=== PATIENT | male | born 1985 | race Caucasian/White ===

== ENCOUNTER → 2024-08-31 | Outpatient (CLI) | payer OTHER ==
[2024-08-31 11:16] VITALS: BP 123/78; PULSE 67; RESP 12; TEMP 98.3
--- NOTE | 2024-08-31 11:37 | P.SLEEP ---
History of Present Illness DATE: 08/31/2024 CONSULTATION/NEW PATIENT EVALUATION HISTORY OF PRESENT ILLNESS/SLEEP-WAKE EVALUATION: 39-year-old gentleman had b een evaluated in the sleep center for possible obstructive sleep apnea hypopnea syndrome. SLEEP SCHEDULE: Usually sleep schedule from 1011 PM until 5:30 AM on weekdays and from 1112 until 67 AM on weekend. FALLING ASLEEP: Usually no problems with falling asleep. DURING SLEEP: Patient has loud snoring and witnessed episodes of stop breathing during the sleep according to his . Patient wakes up from sleep 2 times. Positive history of dry mouth, heartburn, sweating. No history of hypnogogical hallucinations, sleep paralysis, or cataplexy. DURING THE DAY/WAKE STATE: In the morning patient wake up tired, has episodes of irritability. [place] sleepiness scale is 5. Usually patient does not take naps. PAST MEDICAL HISTORY: Hypertension, hyperlipidemia. PAST SURGICAL HISTORY: Status post left elbow surgery and vasectomy. MEDICATIONS: Please see below. SOCIAL HISTORY: Please see below. FAMILY HISTORY: Please see below. REVIEW OF SYSTEMS: Loud snoring, multiple awakenings from sleep. No fevers. No double vision. No recent chest pain. No shortness of breath. No abdominal pain. No bleeding episodes. No blood in urine. No seizure episodes. PHYSICAL EXAMINATION: GENERAL: A pleasant patient without any distress. VITAL SIGNS: See below, weight 225 pounds, BMI 32.3. HEENT: PERRLA, EOMI. Evaluation of oropharynx showed tongue protrudes midline, low position of soft palate Mallampati 3. NECK: Supple. No JVD. Thyroid is not palpable. 17 inches in circumference. LUNGS: Clear to percussion and to auscultation. Good air exchange. No wheezing or rhonchi. HEART: S1, S2 regular. No murmurs, gallops or rubs. ABDOMEN: Soft and nontender. Bowel sounds are present. No organomegaly appreciated. EXTREMITIES: No clubbing or cyanosis. BUSINESS EDUCATION PROFESSOR: Awake, alert, and oriented x3. Cranial nerves 2 to 7 intact. There is no fasciculation or atrophy noted. No focal deficits observed. ASSESSMENT: 1. Loud snoring, awakenings from sleep, low position of soft palate Mallampati 3, wide neck 17 inches in circumference, witnessed episodes of stop breathing during sleep. Obstructive sleep apnea hypopnea syndrome. 2. Hypertension. 3. Hyperlipidemia. 4. Status post vasectomy. 5 status post left elbow surgery. 6 . Obesity. PLAN: 1. Polysomnography for evaluation of patient's breathing during sleep. 2. Following plan after reading sleep study. 3. Preferable position during sleep on the side. 4. No driving if patient feels any sleepiness. Patient is aware of civil and criminal liability for unsafe driving. 5. Sleep hygiene with regular sleep time for at least 7.5-8 hours. 6. Watching weight. Thank you very much for referring this patient for consultation. Sincerely, Paulo Cortés MD, PhD, FAASM. Diplomat of [place] [employer], Sleep Medicine Board by [place] [employer] [place] [employer] End Worker of [facility] [place] cc: Stephen Ortiz MD Past Medical History Past Medical History: Hyperlipidemia, Hypertension History of Any Multi-Drug Resistant Organisms: None Reported Past Surgical History: Orthopedic Surgery Additional Past Surgical History / Comment(s): left elbow, vasactomy Past Anesthesia/Blood Transfusion Reactions: No Reported Reaction Past Psychological History: No Psychological Hx Reported Smoking Status: Current every day smoker Past Alcohol Use History: Rare Past Drug Use History: None Reported Medications and Allergies Home Medications Medication Instructions Recorded Confirmed Type Atorvastatin [Lipitor] 20 mg PO DAILY 08/31/24 08/31/24 History Famotidine [Pepcid] 20 mg PO DAILY 08/31/24 08/31/24 History Ibuprofen [Motrin] 600 mg PO Q8HR PRN 08/31/24 08/31/24 History lisinopriL [Zestril] 10 mg PO DAILY 08/31/24 08/31/24 History Physical Exam Vitals: Vital Signs Temp Pulse Resp BP Pulse Ox 08/31/24 11:12 98.3 F 67 12 123/78 96 Intake and Output 08/30/24 08/31/24 08/31/24 22:59 06:59 14:59 Other: Weight 102.058 kg Sleep Note - Sleep Data ESS Total: 5 - Sleep Note Sleep Note: Temperature: 98.3 F Pulse Rate: 67 Respiratory Rate: 12 Blood Pressure: 123/78 SpO2: 96 Height: 5 ft 10 in Weight: 102.058 kg BMI: Neck Circumference: 17
== END ==
LOC: 3 N SLEEP 10:56
PROVIDERS: ATTEND Internal Medicine
DX: G47.33 Obstructive sleep apnea (adult) (pediatric) (principal); I10 Essential (primary) hypertension; E78.5 Hyperlipidemia, unspecified; E66.9 Obesity, unspecified; Z98.890 Other specified postprocedural states; Z98.52 Vasectomy status; Z68.32 Body mass index [BMI] 32.0-32.9, adult
CPT/HCPCS: 99202

== ENCOUNTER → 2024-10-09 | Outpatient (CLI) | payer OTHER ==
--- NOTE | 2024-10-14 14:39 | P.PCN ---
Description of Procedure: CLINICAL: A home sleep apnea test has been done for confirmation of possible obstructive sleep apnea-hypopnea syndrome. DESCRIPTION OF PROCEDURE: RESULTS: Recording time was 7 hours 38 minutes. Evaluation time was 7 hours 26 minutes. Evaluation time is sufficient for making conclusion about results of the test. Raw data of sleep recording has been reviewed and is adequate. Respiratory channel showed 2 apneas and 141 hypopneas. Apnea-hypopnea index was 19.2 per hour. Pulse rate in the range between minimum 51, maximum 107, average 62 by computer calculation. Lowest desaturation was 84%. IMPRESSION: 1. Obstructive Sleep Apnea Hypopnea Syndrome in moderate range. Please see other impressions from consultation. PLAN: 1.The patient should have PAP titration for correction of respiratory abnormallities during sleep. 2. Following plan after reading sleep study. 3. Watching weight. 4. Sleep hygiene with regular time in bed for at least 8 hours. 5. No driving if feeling any sleepiness. Thank you very much for allowing me to participate in the management of your patient. Sincerely, Paulo Cortés MD, PhD, FAASM Diplomat of [place] [employer] Sleep Medicine Board of [place] [employer] Mental Health Aide of [facility] [place] cc: Stephen Ortiz MD, Cinyd Palumbo
== END ==
LOC: 3 N SLEEP 10:36
PROVIDERS: ATTEND Internal Medicine
DX: G47.33 Obstructive sleep apnea (adult) (pediatric) (principal)